=== PATIENT | female | born 1940 | race Caucasian/White ===

== ENCOUNTER 2019-12-12 18:00 | Emergency (ER) | payer BC, OTHER ==
[~2019-12-12] VITALS: Ht 160 cm; Wt 49.9 kg
[2019-12-12] MEDS ORDERED: ACETAMINOPHEN 325 MG TAB PO ONE (18:30)
[2019-12-12] MEDS ORDERED: SODIUM CHLORIDE 0.9% 1,000 ML IV ONE (18:39)
[2019-12-12] MEDS ORDERED: cefTRIAXone 1GM/50ML D5W 50 ML IV SCH (18:45)
[2019-12-12] MEDS ORDERED: VANCOMYCIN PER PHARMACY 1,000 MG IV SCH (18:45)
[2019-12-12 18:53] LABS: Basophils # (auto) 0 uL; Basophils % (auto) 0.1 % (0.0-2.0); Eosinophils # (auto) 0 uL; Hematocrit 48.2 % (36.0-46.0); Hemoglobin 16.2 g/dL (12.2-16.2); Lymphocytes # (auto) 0.2 uL; Lymphocytes % (auto) 2.1 % (10.0-50.0); Mean Corpuscular Hemoglobin 31.5 pg (28.0-32.0); Mean Corpuscular Hgb Conc. 33.7 g/dL (32.0-36.0); Mean Corpuscular Volume 93.5 fL (80.0-100.0); Monocytes # (auto) 0.6 uL; Monocytes % (auto) 6.5 % (0.0-12.0); Neutrophils % (auto) 91.3 % (37.0-80.0); Nucleated Red Blood Cells % 0.1 %; Platelet Count (auto) 223 10^3/uL (140-450); Red Blood Cells 5.15 10^6/uL (4.0-5.20); Red Cell Distribution Width 13.4 % (11.8-14.3); White Blood Cell 9.9 10^3/uL (4.4-10.8)
[2019-12-12] MEDS ORDERED: DexAMETHasone INJECTION 10 MG in SODIUM CHL 3% 500 ML IV SCH (18:59)
[2019-12-12 19:13] LABS: Albumin 3.7 g/dL (3.4-5.0); Calcium 9.6 mg/dL (8.5-10.1); Potassium 3.8 mmol/L (3.5-5.1)
[2019-12-12 19:15] LABS: Lactic Acid w/Reflex 2.4 mmol/L (0.4-2.0)
[2019-12-12] MEDS ORDERED: DexAMETHasone INJECTION 10 MG in D5W 5% 50 ML IV SCH (19:15)
[2019-12-12 19:18] LABS: Bilirubin, Total 0.6 mg/dL (0.2-1.0); Total Protein 7.8 g/dL (6.4-8.2)
[2019-12-12 19:22] LABS: INR 1.18 (0.9-1.15); Partial Thromboplastin Time 37.6 sec (23.64-32.05)
[2019-12-12] MEDS ORDERED: VANCOMYCIN 1GM/250ML 250 ML IV ONE (19:45)
[2019-12-12] MEDS ORDERED: DexAMETHasone SOD PHOS 10MG/1ML VIAL INJ ONE (21:11)
[2019-12-12 22:46] LABS: Urine Bacteria NONE SEEN /hpf (None Seen); Urine Blood Negative /uL (Negative); Urine Hyaline Cast FEW /lpf (0 - 2); Urine Mucus FEW (None Seen); Urine Specific Gravity 1.019 (1.001-1.035); Urine WBC 1 /hpf (0 - 5)
[2019-12-12 23:03] LABS: Alcohol, Urine < 3.0 mg/dL (0-5); Amphetamine Screen, Urine NEGATIVE (NEGATIVE); Barbiturate Scree,Urine NEGATIVE (NEGATIVE); Benzodiazephine Screen, Urine NEGATIVE (NEGATIVE); Cannabinoid Screen, Urine NEGATIVE (NEGATIVE); Cocaine Screen, Urine NEGATIVE (NEGATIVE); Opiate Scree,Urine NEGATIVE (NEGATIVE); Phencyclidine Screen, Urine NEGATIVE (NEGATIVE)
[2019-12-13] MEDS ORDERED: OSELTAMIVIR 75 MG CAP PO ONE (00:45)
[2019-12-13 00:50] VITALS: BP 135/71
== END 2019-12-13 01:07 | disposition short-term general hospital (02) ==
LOC: EDBD 18:00 → ER 18:02
DX: A41.89 Other specified sepsis (principal); J18.8 Other pneumonia, unspecified organism; J40 Bronchitis, not specified as acute or chronic; I50.9 Heart failure, unspecified; I10 Essential (primary) hypertension; J44.9 Chronic obstructive pulmonary disease, unspecified; Z87.891 Personal history of nicotine dependence; Z88.0 Allergy status to penicillin
CPT/HCPCS: 36415; 36600; 70450; 71045; 72125; 80053; 80307; 81001; 82553; 82805; 83605; 83880; 84484; 85025; 85379; 85384; 85610; 85730; 87040; 87804; 96361; 96365; 96366; 96367; 99291; J0696; J1100; J3370; J7060

== ENCOUNTER 2022-08-20 06:26 | Emergency (ER) | payer OTHER ==
[~2022-08-20] VITALS: Ht 152.4 cm; Wt 55.0 kg
[2022-08-20] MEDS ORDERED: SODIUM CHLORIDE 0.9% 1,000 ML IV ONE ×2 (06:45)
[2022-08-20 07:28] LABS: Hemoglobin 16.1 g/dL (12.2-16.2); Mean Corpuscular Hemoglobin 31.1 pg (28.0-32.0); Mean Corpuscular Hgb Conc. 33.6 g/dL (32.0-36.0); Mean Corpuscular Volume 92.5 fL (80.0-100.0); Red Blood Cells 5.19 10^6/uL (4.0-5.20); Red Cell Distribution Width 13.7 % (11.8-14.3); White Blood Cell 15.2 10^3/uL (4.4-10.8)
[2022-08-20 07:30] LABS: Band Neutrophils % (manual) 0; Basophils % (manual) 0 (0.0-2.0); Blast Cells 0; Eosinophils % (manual) 0 (0-7); Metamyelocytes % 0; Myelocytes % 0; Promyelocytes % 0; Reactive Lymphocytes 0
[2022-08-20] MEDS ORDERED: PANTOPRAZOLE 40 MG/10 ML VIAL INJ IV ONE (07:30)
[2022-08-20 07:46] LABS: INR 1.15 (0.9-1.15); Partial Thromboplastin Time 34.2 sec (24.6-33.4)
[2022-08-20 07:53] LABS: Lymphocytes % (manual) 3 (10.0-50.0); Monocytes % (manual) 6 (0-12)
[2022-08-20 07:55] LABS: Albumin 3.4 g/dL (3.4-5.0); Potassium 4.1 mmol/L (3.5-5.1)
[2022-08-20 08:00] LABS: BUN/Creatinine Ratio 34.8; Total Protein 6.5 g/dL (6.4-8.2)
[2022-08-20 08:47] LABS: Urine Bacteria NONE SEEN /hpf (None Seen); Urine Blood Negative /uL (Negative); Urine Mucus FEW (None Seen); Urine Specific Gravity 1.023 (1.001-1.035); Urine WBC 2 /hpf (0 - 5)
[2022-08-20] MEDS ORDERED: levoFLOXacin 500MG 100 ML IV ONE (09:00)
[2022-08-20] MEDS ORDERED: cefTRIAXone 1GM/50ML D5W 50 ML IV ONE (09:00)
[2022-08-20] MEDS ORDERED: metroNIDAZOLE 500MG/100ML 100 ML IV ONE (09:00)
[2022-08-20 18:18] VITALS: BP 143/69
== END 2022-08-20 18:32 | disposition short-term general hospital (02) ==
LOC: EDBD 06:26 → ER 06:26
DX: K92.2 Gastrointestinal hemorrhage, unspecified (principal); J18.9 Pneumonia, unspecified organism; F03.90 Unspecified dementia, unspecified severity, without behavioral disturbance, psychotic disturbance, mood disturbance, and anxiety; I10 Essential (primary) hypertension; J44.9 Chronic obstructive pulmonary disease, unspecified; Z90.710 Acquired absence of both cervix and uterus; Z90.89 Acquired absence of other organs; Z87.891 Personal history of nicotine dependence; Z88.0 Allergy status to penicillin; Z88.1 Allergy status to other antibiotic agents; Z88.2 Allergy status to sulfonamides; Z20.822 Contact with and (suspected) exposure to COVID-19
CPT/HCPCS: 36415; 71045; 74176; 80053; 81001; 83605; 83880; 84484; 85007; 85027; 85610; 85730; 87040; 87426; 96361; 96365; 96375; 99285; C9113; J3490; J7030